=== PATIENT | male | born 1960 | race African-American/Black ===

== ENCOUNTER 2016-08-29 13:10 | Inpatient (IN) | payer OTHER ==
[2016-08-29 13:56] VITALS: BMI 19.8
--- NOTE | 2016-08-29 16:26 | HP ---
CIWA Score - CIWA Score Nausea/Vomitin-Mild Nausea/No Vomiting Muscle Tremors: 5 Anxiety: 4-Mod. Anxious/Guarded Agitation: 4-Moderately Restless Paroxysmal Sweats: 2 Orientation: 0-Oriented Tacttile Disturbances: 0-None Auditory Disturbances: 0-None Visual Disturbances: 0-None Headache: 0-None Present CIWA-Ar Total Score: 16 Admission ROS BHS - HPI Chief Complaint: withdrawal sx Allergies/Adverse Reactions: Allergies Allergy/AdvReac Type Severity Reaction Status Date / Time No Known Allergies Allergy Verified 08/29/16 16:34 History of Present Illness: 55 years old male with long history of alcohol xanax marijuana dependence has hypertension and bipolar II is admitted to detox Exam Limitations: No Limitations - Ebola screening Have you traveled outside of the country in the last 21 days: No Have you had contact with anyone from an Ebola affected area: No Have you been sick,other than usual withdrawal symptoms: No Do you have a fever: No - Review of Systems Constitutional: Chills, Loss of Appetite, Changes in sleep, Unintentional Wgt. Loss, Unexplained wgt Loss EENT: reports: Other (eye glasses) Respiratory: reports: No Symptoms reported Cardiac: reports: No Symptoms Reported GI: reports: Diarrhea, Nausea, Poor Appetite, Poor Fluid Intake, Abdominal cramping : reports: No Symptoms Reported Musculoskeletal: reports: Joint Pain (hips) Integumentary: reports: No Symptoms Reported Neuro: reports: Tremors Endocrine: reports: No Symptoms Reported Hematology: reports: Blood Clots (aspirin) Psychiatric: reports: Judgement Intact, Orientated x3, Anxious, Depressed Other Systems: Reviewed and Negative Patient History - Patient Medical History Hx Anemia: Yes (NO CURRENT MEDS) Hx Asthma: No Hx Chronic Obstructive Pulmonary Disease (COPD): No Hx Cancer: No Hx Cardiac Disorders: No Hx Congestive Heart Failure: No Hx Hypertension: Yes (ON MEDS.) Hx Hypercholesterolemia: No Hx Pacemaker: No HX Cerebrovascular Accident: No Hx Seizures: No Hx Dementia: No Hx Diabetes: No Hx Gastrointestinal Disorders: No Hx Liver Disease: No Hx Genitourinary Disorders: No Hx Sexually Transmitted Disorders: No Hx Renal Disease (ESRD): No Hx Thyroid Disease: No Hx Human Immunodeficiency Virus (HIV): No (NEGATIVE HX) Hx Hepatitis C: No Hx Depression: No Hx Suicide Attempt: No Hx Bipolar Disorder: Yes Hx Schizophrenia: No - Patient Surgical History Past Surgical History: Yes Hx Neurologic Surgery: No Hx Cataract Extraction: No Hx Cardiac Surgery: No Hx Lung Surgery: No Hx Breast Surgery: No Hx Breast Biopsy: No Hx Abdominal Surgery: No Hx Appendectomy: No Hx Cholecystectomy: No Hx Genitourinary Surgery: No Hx Orthopedic Surgery: No - PPD History Previous Implant?: Yes Documented Results: Negative w/proof Implanted On Prior [facility] Admission?: Yes Date: 07/27/15 Results: 0 MM PPD to be Administered?: Yes - Smoking Cessation Smoking history: Former smoker Have you smoked in the past 12 months: No Aproximately how many cigarettes per day: 0 If you are a former smoker, when did you quit?: in 2004 Cigars Per Day: 0 Hx Chewing Tobacco Use: No Initiated information on smoking cessation: No - Substance & Tx. History Hx Alcohol Use: Yes Hx Substance Use: Yes Substance Use Type: Alcohol, Marijuana, Tranquilizers Hx Substance Use Treatment: Yes - Substances Abused Alcohol-vodka/rum/beer Route: Oral Frequency: Daily Amount used: 2-3 pts./3-4 6 pks. Age of first use: 25 Date of Last Use: 08/29/16 Xanax Route: Oral Frequency: 3-6 times per week Amount used: 3 tabs. (2 mg.) Age of first use: 54 Date of Last Use: 08/27/16 Marijuana Route: Smoking Frequency: Daily Amount used: $15 Age of first use: 18 Date of Last Use: 08/29/16 Family Disease History - Family Disease History Family Disease History: Other: Father (alcohol dependence), Mother (alcohol dependence) Admission Physical Exam S - Vital Signs Vital Signs: Vital Signs - 24 hr 08/29/16 13:54 Temperature 98.8 F Pulse Rate 103 H Respiratory 18 Rate Blood Pressure 128/91 - Physical General Appearance: Yes: Appropriately Dressed, Moderate Distress, Thin, Tremorous, Irritable, Sweating, Anxious HEENTM: Yes: Hearing grossly Normal, Normal ENT Inspection, Normocephalic, Normal Voice Respiratory: Yes: Chest Non-Tender, Lungs Clear, Normal Breath Sounds, No Respiratory Distress, No Accessory Muscle Use Neck: Yes: Supple, Trachea in good position Breast: Yes: Breasts Symetrical Cardiology: Yes: Regular Rhythm, S1, S2, Tachycardia Abdominal: Yes: Non Tender, Soft Genitourinary: Yes: Within Normal Limits Back: Yes: Normal Inspection Musculoskeletal: Yes: full range of Motion, Gait Steady, Muscle Pain (hips) Extremities: Yes: Normal Range of Motion, Non-Tender, Tremors Neurological: Yes: Fully Oriented, Alert, Motor Strength 5/5, Normal Response, Depressed Affect Integumentary: Yes: Warm, Clammy Lymphatic: Yes: Within Normal Limits - Diagnostic (1) Alcohol dependence with uncomplicated withdrawal Current Visit: Yes Status: Acute (2) Essential (primary) hypertension Current Visit: Yes Status: Acute Comment: lisinopril 30 mg daily (3) Bipolar II disorder Current Visit: Yes Status: Suspected (4) Weight loss Current Visit: Yes Status: Acute Cleared for Admission [facility] - Detox or Rehab [facility] Level of Care: Medically Managed Detox Regimen/Protocol: Librium [facility] Breath Alcohol Content Breath Alcohol Content: 0 Vital Signs - Vital Signs Vital Signs Refused: No Temperature: 98.8 F Temperature Source: Oral Pulse Rate: 103 Respiratory Rate: 18 Blood Pressure: 128/91 BP Location: Left Arm Blood Pressure Position: Sitting - Height Height: 6 ft 1 in - Weight Weight: 150 lb Weight Measurement Method: Standing Scale Body Mass Index (BMI): 19.8 - Bowel Function Bowel Movement: Yes Urine Drug Screen - Control Is Test Valid: Yes - Results Drug Screen Negative: No Urine Drug Screen Results: THC-Marijuana, BZO-Benzodiazepines
[2016-08-29] MEDS ORDERED: P-EPHED 60MG/TRIPROLIDI 2.5MG TABLET PO PRN (16:45)
[2016-08-29] MEDS ORDERED: MAGNESIUM HYDROX 2400MG/30ML ORAL SUSPENSION 30 ML CUP PO PRN (16:45)
[2016-08-29] MEDS ORDERED: diphenhydrAMINE HCL 50 MG CAPSULE PO PRN (16:45)
[2016-08-29] MEDS ORDERED: hydrOXYzine PAMOATE 50 MG CAPSULE (FP) PO PRN (16:45)
[2016-08-29] MEDS ORDERED: ACETAMINOPHEN 325 MG TABLET (FP) PO PRN (16:45)
[2016-08-29] MEDS ORDERED: guaiFENesin/D-METHORPHAN HB 10 ML UNIT-DOSE CUPS PO PRN (16:45)
[2016-08-29] MEDS ORDERED: MENTHOL/PHENOL 1 EACH UD MM PRN (16:45)
[2016-08-29] MEDS ORDERED: MAG HYDROX/AL HYDROX/SIMETH 30 ML UNIT-DOSE CUP PO PRN (16:45)
[2016-08-29] MEDS ORDERED: MAGNESIUM CITRATE 300 ML BOTTLE PO PRN (16:45)
[2016-08-29] MEDS ORDERED: LOPERAMIDE HCL 2 MG CAPSULE PO PRN (16:45)
[2016-08-29] MEDS ORDERED: chlordiazePOXIDE HCL 25 MG CAPSULE PO PRN (16:45)
[2016-08-29] MEDS ORDERED: chlordiazePOXIDE HCL 25 MG CAPSULE PO ONE (17:45)
[2016-08-29] MEDS: chlordiazePOXIDE HCL 25 MG CAPSULE PO SCH (22:21)
[2016-08-29] MEDS: THIAMINE HCL 100 MG TABLET (FP) PO SCH (22:22)
[2016-08-29 22:34] LABS: URINE APPEARANCE SLCLOUDY; URINE BILIRUBIN NEGATIVE (NEGATIVE); URINE BLOOD NEGATIVE (NEGATIVE); URINE COLOR DKYELLOW; URINE GLUCOSE (UA) NEGATIVE (NEGATIVE); URINE KETONE TRACE (NEGATIVE); URINE LEUK ESTERASE NEGATIVE (NEGATIVE); URINE NITRITE NEGATIVE (NEGATIVE); URINE UROBILINOGEN NEGATIVE E.U./dl (0.2-1.0)
[2016-08-29 22:39] LABS: URINE PROTEIN 1+ (NEGATIVE)
[2016-08-29 22:48] LABS: URINE MUCUS FEW; URINE RBC <1 /hpf (0-3); URINE WBC 1 /hpf (3-5)
[2016-08-30] MEDS: chlordiazePOXIDE HCL 25 MG CAPSULE PO SCH ×4 (05:03→22:11)
[2016-08-30 09:51] LABS: MCH 28.2 pg (25.7-33.7); MCHC 32.3 g/dl (32.0-35.9); MEAN CELL VOLUME 87.4 fl (80-96); MEAN PLT VOLUME 9.5 fl (7.5-11.1); PLATELET COUNT 172 K/MM3 (134-434); RDW 16.1 % (11.9-15.9); WHITE BLOOD COUNT 5.8 K/mm3 (4.0-10.0)
[2016-08-30] MEDS ORDERED: LISINOPRIL 10 MG TABLET (FP) PO SCH (10:00)
[2016-08-30] MEDS: ASPIRIN 81 MG CHEWABLE TABLETS PO SCH (10:06)
[2016-08-30] MEDS: PRENATAL VITAMINS W/ FOLIC ACID TABLET (FP) PO SCH (10:06)
[2016-08-30] MEDS: LISINOPRIL 20 MG TABLET (FP) PO SCH (10:06)
--- NOTE | 2016-08-30 10:45 | PN ---
[facility] CIWA - CIWA Score Nausea/Vomitin-No Nausea/No Vomiting Muscle Tremors: 4-Moderate,w/Arms Extend Anxiety: 4-Mod. Anxious/Guarded Agitation: 4-Moderately Restless Paroxysmal Sweats: 1-Minimal Palms Moist Orientation: 0-Oriented Tacttile Disturbances: 3-Moderate Itch/Numb/Burn Auditory Disturbances: 0-None Visual Disturbances: 0-None Headache: 0-None Present CIWA-Ar Total Score: 16 BHS Progress Note (SOAP) Subjective: ANXIETY,SWEATS,INTERMITTENT SLEEP Objective: 08/30/16 10:44 Vital Signs Temperature 96.7 F L 08/30/16 09:56 Pulse Rate 73 08/30/16 09:56 Respiratory Rate 20 08/30/16 09:56 Blood Pressure 152/93 08/30/16 09:56 O2 Sat by Pulse Oximetry (%) Laboratory Last Values WBC 5.8 K/mm3 (4.0-10.0) D 08/30/16 06:00 RBC 5.02 M/mm3 (4.00-5.60) 08/30/16 06:00 Hgb 14.2 GM/dL (11.7-16.9) D 08/30/16 06:00 Hct 43.9 % (35.4-49) D 08/30/16 06:00 MCV 87.4 fl (80-96) 08/30/16 06:00 MCHC 32.3 g/dl (32.0-35.9) 08/30/16 06:00 RDW 16.1 % (11.9-15.9) H 08/30/16 06:00 Plt Count 172 K/MM3 (134-434) 08/30/16 06:00 MPV 9.5 fl (7.5-11.1) D 08/30/16 06:00 Urine Color Dkyellow 08/29/16 22:00 Urine Appearance Slcloudy 08/29/16 22:00 Urine pH 5.0 (5.0-8.0) D 08/29/16 22:00 Ur Specific [place] 1.020 (1.001-1.035) 08/29/16 22:00 Urine Protein 1+ (NEGATIVE) H 08/29/16 22:00 Urine Glucose (UA) Negative (NEGATIVE) 08/29/16 22:00 Urine Ketones Trace (NEGATIVE) H 08/29/16 22:00 Urine Blood Negative (NEGATIVE) 08/29/16 22:00 Urine Nitrite Negative (NEGATIVE) 08/29/16 22:00 Urine Bilirubin Negative (NEGATIVE) 08/29/16 22:00 Urine Urobilinogen Negative E.U./dl (0.2-1.0) 08/29/16 22:00 Ur Leukocyte Esterase Negative (NEGATIVE) 08/29/16 22:00 Urine RBC <1 /hpf (0-3) 08/29/16 22:00 Urine WBC 1 /hpf (3-5) 08/29/16 22:00 Urine Mucus Few 08/29/16 22:00 Assessment: 08/30/16 10:44 WITHDRAWAL SX Plan: CONTINUE DETOX INCREASE PO FLUIDS.
[2016-08-30 11:10] LABS: ALBUMIN 4.6 g/dl (3.4-5.0); ALK PHOS 81 U/L (45-117); ANION GAP 12 (8-16); BILIRUBIN,TOTAL 0.9 mg/dL (0.2-1.0); CALCIUM 9.5 mg/dL (8.5-10.1); CO2 27 mmol/L (21-32); GLUCOSE,RANDOM 129 mg/dL (74-106); SGOT/AST 61 U/L (15-37); SGPT/ALT 90 U/L (12-78); TOT PROT 8.4 g/dl (6.4-8.2)
--- NOTE | 2016-08-30 11:55 | EKG ---
Test Reason : Blood Pressure : / mmHG Vent. Rate : 085 BPM Atrial Rate : 085 BPM P-R Int : 162 ms QRS Dur : 094 ms QT Int : 370 ms P-R-T Axes : 077 063 073 degrees QTc Int : 440 ms NORMAL SINUS RHYTHM INCOMPLETE RBBB NO PREVIOUS ECGS AVAILABLE Confirmed by CLARISSA LEE MD ([id number]) on 08/30/2016 11:55:16 AM Referred By: Confirmed By:CLARISSA LEE MD
--- NOTE | 2016-08-30 14:42 | CONSULT ---
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 Smoking history: Former smoker. Have you smoked in the past 12 months: No. Aproximately how many cigarettes per day: 0. If you are a former smoker, when did you quit?: in 2004. Cigars Per Day: 0. Hx Chewing Tobacco Use: No. Initiated information on smoking cessation: No. - Substance & Tx. History. Hx Alcohol Use: Yes. Hx Substance Use: Yes. Substance Use Type: Alcohol, Marijuana, Tranquilizers. Hx Substance Use Treatment: Yes. - Substances Abused. Alcohol-vodka/rum/beer. Route: Oral. Frequency: Daily. Amount used: 2-3 pts./3-4 6 pks. Age of first use: 25. Date of Last Use: 08/29/16. Xanax. Route: Oral. Frequency: 3-6 times per week. Amount used: 3 tabs. (2 mg.). Age of first use: 54. Date of Last Use: 08/27/16. Marijuana. Route: Smoking. Frequency: Daily. Amount used: $15. Age of first use: 18. Date of Last Use: 08/29/16 Medical History: Significant for HTN and history of treatment for anemia Psychiatric History: Denies history of previous psychiatric treatment. However, reports feeling anxious and experiencing difficulty to sleep Mental Status Exam - Mental Status Exam Alert and Oriented to: Time, Place, Person Cognitive Function: Fair Patient Appearance: Well Groomed Mood: Anxious Affect: Appropriate Patient Behavior: Cooperative Speech Pattern: Clear Voice Loudness: Normal Thought Process: Intact Thought Disorder: Not Present Hallucinations: Denies Suicidal Ideation: Denies Homicidal Ideation: Denies Insight/Judgement: Poor Sleep: Poorly Appetite: Good Muscle strength/Tone: Normal Gait/Station: Normal Psychiatric Findings - Problem List ([place] 1, 2,3) (1) Alcohol-induced anxiety disorder Current Visit: No Status: Acute (2) Alcohol-induced sleep disorder Current Visit: No Status: Acute (3) Alcohol dependence with uncomplicated withdrawal Current Visit: Yes Status: Acute (4) Sedative dependence Current Visit: No Status: Acute (5) Cannabis dependence, uncomplicated Current Visit: No Status: Acute (6) Nicotine dependence Current Visit: No Status: Chronic Qualifiers: Nicotine product type: cigarettes Substance use status: uncomplicated Qualified Code(s): F17.210 - Nicotine dependence, cigarettes, uncomplicated (7) Essential (primary) hypertension Current Visit: Yes Status: Acute Comment: lisinopril 30 mg daily - Initial Treatment Plan Initial Treatment Plan: 1) Start Zolpidem 10 mg po HS prn for insomnia. Benefits vs Risks of medication discussed with patient and he agreed to try it. 2) Continue inpatient detoxification
[2016-08-30] MEDS: THIAMINE HCL 100 MG TABLET (FP) PO SCH (22:10)
[2016-08-30] MEDS: ZOLPIDEM TARTRATE 10 MG TABLET (PARK CARE ONLY) PO PRN (22:11)
[2016-08-31] MEDS: chlordiazePOXIDE HCL 25 MG CAPSULE PO SCH ×3 (05:15→18:18)
[2016-08-31] MEDS: ASPIRIN 81 MG CHEWABLE TABLETS PO SCH (10:05)
[2016-08-31] MEDS: PRENATAL VITAMINS W/ FOLIC ACID TABLET (FP) PO SCH (10:05)
[2016-08-31] MEDS: LISINOPRIL 20 MG TABLET (FP) PO SCH (10:05)
--- NOTE | 2016-08-31 13:19 | PN ---
S CIWA - CIWA Score Nausea/Vomitin Muscle Tremors: 4-Moderate,w/Arms Extend Anxiety: 2 Agitation: 1-Slight > Activity Paroxysmal Sweats: 3 Orientation: 0-Oriented Tacttile Disturbances: 3-Moderate Itch/Numb/Burn Auditory Disturbances: 1-Very Mild Visual Disturbances: 0-None Headache: 0-None Present CIWA-Ar Total Score: 16 BHS Progress Note (SOAP) Subjective: Sweating, Body Aches, Muscle spasms, Nausea, Tremors, Interrupted sleep. Objective: PT. A & O X 3. 08/31/16 13:18 Vital Signs Temperature 97.2 F L 08/31/16 13:14 Pulse Rate 82 08/31/16 13:14 Respiratory Rate 20 08/31/16 13:14 Blood Pressure 101/66 08/31/16 13:14 O2 Sat by Pulse Oximetry (%) Laboratory Last Values WBC 5.8 K/mm3 (4.0-10.0) D 08/30/16 06:00 RBC 5.02 M/mm3 (4.00-5.60) 08/30/16 06:00 Hgb 14.2 GM/dL (11.7-16.9) D 08/30/16 06:00 Hct 43.9 % (35.4-49) D 08/30/16 06:00 MCV 87.4 fl (80-96) 08/30/16 06:00 MCHC 32.3 g/dl (32.0-35.9) 08/30/16 06:00 RDW 16.1 % (11.9-15.9) H 08/30/16 06:00 Plt Count 172 K/MM3 (134-434) 08/30/16 06:00 MPV 9.5 fl (7.5-11.1) D 08/30/16 06:00 Sodium 141 mmol/L (136-145) 08/30/16 06:00 Potassium 4.1 mmol/L (3.5-5.1) 08/30/16 06:00 Chloride 102 mmol/L (98-107) 08/30/16 06:00 Carbon Dioxide 27 mmol/L (21-32) 08/30/16 06:00 Anion Gap 12 (8-16) 08/30/16 06:00 BUN 14 mg/dL (7-18) 08/30/16 06:00 Creatinine 1.0 mg/dL (0.7-1.3) 08/30/16 06:00 Creat Clearance w eGFR > 60 (>60) 08/30/16 06:00 Random Glucose 129 mg/dL (74-106) H 08/30/16 06:00 Calcium 9.5 mg/dL (8.5-10.1) 08/30/16 06:00 Total Bilirubin 0.9 mg/dL (0.2-1.0) D 08/30/16 06:00 AST 61 U/L (15-37) H D 08/30/16 06:00 ALT 90 U/L (12-78) H 08/30/16 06:00 Alkaline Phosphatase 81 U/L (45-117) D 08/30/16 06:00 Total Protein 8.4 g/dl (6.4-8.2) H D 08/30/16 06:00 Albumin 4.6 g/dl (3.4-5.0) 08/30/16 06:00 Urine Color Dkyellow 08/29/16 22:00 Urine Appearance Slcloudy 08/29/16 22:00 Urine pH 5.0 (5.0-8.0) D 08/29/16 22:00 Ur Specific [place] 1.020 (1.001-1.035) 08/29/16 22:00 Urine Protein 1+ (NEGATIVE) H 08/29/16 22:00 Urine Glucose (UA) Negative (NEGATIVE) 08/29/16 22:00 Urine Ketones Trace (NEGATIVE) H 08/29/16 22:00 Urine Blood Negative (NEGATIVE) 08/29/16 22:00 Urine Nitrite Negative (NEGATIVE) 08/29/16 22:00 Urine Bilirubin Negative (NEGATIVE) 08/29/16 22:00 Urine Urobilinogen Negative E.U./dl (0.2-1.0) 08/29/16 22:00 Ur Leukocyte Esterase Negative (NEGATIVE) 08/29/16 22:00 Urine RBC <1 /hpf (0-3) 08/29/16 22:00 Urine WBC 1 /hpf (3-5) 08/29/16 22:00 Urine Mucus Few 08/29/16 22:00 RPR Titer Nonreactive (NONREACTIVE) 08/30/16 06:00 LABS NOTED. Assessment: 08/31/16 13:19 WITHDRAWAL SYMPTOMS. Plan: CONTINUE DETOX. ADVISED PATIENT TO FOLLOW-UP WITH [facility]ANER / REHAB MEDICAL PROVIDER AFTER DISCHARGE FROM DETOX FOR GENERAL MEDICAL ASSESSMENT AND FOR ANY ABNORMAL ADMISSION LAB VALUES.
[2016-08-31] MEDS: ZOLPIDEM TARTRATE 10 MG TABLET (PARK CARE ONLY) PO PRN (22:09)
[2016-08-31] MEDS: chlordiazePOXIDE 5 MG CAPSULE PO SCH (22:09)
[2016-08-31] MEDS: THIAMINE HCL 100 MG TABLET (FP) PO SCH (22:10)
[2016-08-31] MEDS: CYCLOBENZAPRINE HCL 10 MG TABLET (FP) PO PRN (22:11)
[2016-09-01] MEDS: chlordiazePOXIDE 5 MG CAPSULE PO SCH ×3 (05:34→17:29)
[2016-09-01] MEDS: CYCLOBENZAPRINE HCL 10 MG TABLET (FP) PO PRN ×2 (05:35→17:29)
[2016-09-01] MEDS: ASPIRIN 81 MG CHEWABLE TABLETS PO SCH (10:17)
[2016-09-01] MEDS: PRENATAL VITAMINS W/ FOLIC ACID TABLET (FP) PO SCH (10:17)
[2016-09-01] MEDS: LISINOPRIL 20 MG TABLET (FP) PO SCH (12:23)
--- NOTE | 2016-09-01 13:34 | PN ---
BHS Progress Note (SOAP) Subjective: Irritability, tremor, chills, sweating, nausea Objective: 09/01/16 13:31 Last Vital Signs Temp Pulse Resp BP Pulse Ox 97 F L 64 20 114/68 09/01/16 09:41 09/01/16 09:41 09/01/16 09:41 09/01/16 09:41 Laboratory Tests 08/29/16 08/30/16 08/30/16 22:00 06:00 06:00 WBC 5.8 D RBC 5.02 Hgb 14.2 D Hct 43.9 D MCV 87.4 MCHC 32.3 RDW 16.1 H Plt Count 172 MPV 9.5 D Sodium 141 Potassium 4.1 Chloride 102 Carbon Dioxide 27 Anion Gap 12 BUN 14 Creatinine 1.0 Creat Clearance w eGFR > 60 Random Glucose 129 H Calcium 9.5 Total Bilirubin 0.9 D AST 61 H D ALT 90 H Alkaline Phosphatase 81 D Total Protein 8.4 H D Albumin 4.6 Urine Color Dkyellow Urine Appearance Slcloudy Urine pH 5.0 D Ur Specific [place] 1.020 Urine Protein 1+ H Urine Glucose (UA) Negative Urine Ketones Trace H Urine Blood Negative Urine Nitrite Negative Urine Bilirubin Negative Urine Urobilinogen Negative Ur Leukocyte Esterase Negative Urine RBC <1 Urine WBC 1 Urine Mucus Few RPR Titer 08/30/16 06:00 WBC RBC Hgb Hct MCV MCHC RDW Plt Count MPV Sodium Potassium Chloride Carbon Dioxide Anion Gap BUN Creatinine Creat Clearance w eGFR Random Glucose Calcium Total Bilirubin AST ALT Alkaline Phosphatase Total Protein Albumin Urine Color Urine Appearance Urine pH Ur Specific [place] Urine Protein Urine Glucose (UA) Urine Ketones Urine Blood Urine Nitrite Urine Bilirubin Urine Urobilinogen Ur Leukocyte Esterase Urine RBC Urine WBC Urine Mucus RPR Titer Nonreactive Labs noted: serum glucose 129, UA: 1+ glucose Assessment: Withdrawal symptoms Noted with hyperglycemia and proteinuria Plan: Continue detox Hyperglycemia: finger stick ac meal, consider starting oral antidiabetic if warranted, consider changing diet to diabetic if warranted Proteinuria: encouraged to drink lots of water, repeat UA
[2016-09-01] MEDS ORDERED: ONDANSETRON 4 MG TABLET PO ONE (14:01)
[2016-09-01] MEDS: INSULIN SLIDING SCALE (NOVOLOG) 1 VIAL SQ SCH (16:52)
[2016-09-01] MEDS ORDERED: ONDANSETRON 4 MG TABLET PO PRN (22:00)
[2016-09-01] MEDS: THIAMINE HCL 100 MG TABLET (FP) PO SCH (22:03)
[2016-09-01] MEDS: ZOLPIDEM TARTRATE 10 MG TABLET (PARK CARE ONLY) PO PRN (22:04)
[2016-09-01] MEDS: chlordiazePOXIDE HCL 10 MG CAPSULE PO SCH (22:04)
[2016-09-02] MEDS: chlordiazePOXIDE HCL 10 MG CAPSULE PO SCH ×2 (05:40→10:09)
[2016-09-02] MEDS: INSULIN SLIDING SCALE (NOVOLOG) 1 VIAL SQ SCH ×2 (07:48→11:49)
[2016-09-02 09:34] VITALS: BP 117/71; PULSE 71; TEMP 97
[2016-09-02] MEDS: PRENATAL VITAMINS W/ FOLIC ACID TABLET (FP) PO SCH (10:07)
[2016-09-02] MEDS: ASPIRIN 81 MG CHEWABLE TABLETS PO SCH (10:09)
[2016-09-02] MEDS: LISINOPRIL 20 MG TABLET (FP) PO SCH (10:10)
--- NOTE | 2016-09-02 10:18 | DS ---
[facility] Detox Discharge Summary Admission Date: 08/29/16 Discharge Date: 09/02/16 - History Present History: Alcohol Dependence, Cannabis Dependence Pertinent Past History: HTN - Physical Exam Results Vital Signs: Vital Signs Temperature 97 F L 09/02/16 09:33 Pulse Rate 71 09/02/16 09:33 Respiratory Rate 20 09/02/16 09:33 Blood Pressure 117/71 09/02/16 09:33 O2 Sat by Pulse Oximetry (%) Pertinent Admission Physical Exam Findings: Withdrawal sx. Laboratory Last Values WBC 5.8 K/mm3 (4.0-10.0) D 08/30/16 06:00 RBC 5.02 M/mm3 (4.00-5.60) 08/30/16 06:00 Hgb 14.2 GM/dL (11.7-16.9) D 08/30/16 06:00 Hct 43.9 % (35.4-49) D 08/30/16 06:00 MCV 87.4 fl (80-96) 08/30/16 06:00 MCHC 32.3 g/dl (32.0-35.9) 08/30/16 06:00 RDW 16.1 % (11.9-15.9) H 08/30/16 06:00 Plt Count 172 K/MM3 (134-434) 08/30/16 06:00 MPV 9.5 fl (7.5-11.1) D 08/30/16 06:00 Sodium 141 mmol/L (136-145) 08/30/16 06:00 Potassium 4.1 mmol/L (3.5-5.1) 08/30/16 06:00 Chloride 102 mmol/L (98-107) 08/30/16 06:00 Carbon Dioxide 27 mmol/L (21-32) 08/30/16 06:00 Anion Gap 12 (8-16) 08/30/16 06:00 BUN 14 mg/dL (7-18) 08/30/16 06:00 Creatinine 1.0 mg/dL (0.7-1.3) 08/30/16 06:00 Creat Clearance w eGFR > 60 (>60) 08/30/16 06:00 POC Glucometer 174 UNITS (()) 09/02/16 06:26 Random Glucose 129 mg/dL (74-106) H 08/30/16 06:00 Calcium 9.5 mg/dL (8.5-10.1) 08/30/16 06:00 Total Bilirubin 0.9 mg/dL (0.2-1.0) D 08/30/16 06:00 AST 61 U/L (15-37) H D 08/30/16 06:00 ALT 90 U/L (12-78) H 08/30/16 06:00 Alkaline Phosphatase 81 U/L (45-117) D 08/30/16 06:00 Total Protein 8.4 g/dl (6.4-8.2) H D 08/30/16 06:00 Albumin 4.6 g/dl (3.4-5.0) 08/30/16 06:00 Urine Color Dkyellow 08/29/16 22:00 Urine Appearance Slcloudy 08/29/16 22:00 Urine pH 5.0 (5.0-8.0) D 08/29/16 22:00 Ur Specific [place] 1.020 (1.001-1.035) 08/29/16 22:00 Urine Protein 1+ (NEGATIVE) H 08/29/16 22:00 Urine Glucose (UA) Negative (NEGATIVE) 08/29/16 22:00 Urine Ketones Trace (NEGATIVE) H 08/29/16 22:00 Urine Blood Negative (NEGATIVE) 08/29/16 22:00 Urine Nitrite Negative (NEGATIVE) 08/29/16 22:00 Urine Bilirubin Negative (NEGATIVE) 08/29/16 22:00 Urine Urobilinogen Negative E.U./dl (0.2-1.0) 08/29/16 22:00 Ur Leukocyte Esterase Negative (NEGATIVE) 08/29/16 22:00 Urine RBC <1 /hpf (0-3) 08/29/16 22:00 Urine WBC 1 /hpf (3-5) 08/29/16 22:00 Urine Mucus Few 08/29/16 22:00 RPR Titer Nonreactive (NONREACTIVE) 08/30/16 06:00 labs noted - Treatment Hospital Course: Detox Protocol Followed, Detoxed Safely, Responded well, Discharged Condition Good, Rehab Referral Accepted Patient has Accepted a Rehab Referral to: [facility] - Medication Discharge Medications: Ambulatory Orders Aspirin [Aspirin EC] 81 mg PO DAILY 07/04/14 Lisinopril [Prinivil -] 20 mg PO DAILY 08/29/16 - Diagnosis (1) Alcohol dependence with uncomplicated withdrawal Current Visit: Yes Status: Acute (2) Essential (primary) hypertension Current Visit: Yes Status: Acute (3) Cannabis dependence, uncomplicated Current Visit: Yes Status: Acute (4) Nicotine dependence Current Visit: Yes Status: Chronic Qualifiers: Nicotine product type: cigarettes Substance use status: uncomplicated Qualified Code(s): F17.210 - Nicotine dependence, cigarettes, uncomplicated (5) Alcohol-induced anxiety disorder Current Visit: Yes Status: Acute (6) Alcohol-induced sleep disorder Current Visit: Yes Status: Acute - AMA Did Patient Leave Against Medical Advice: No
[2016-09-02 14:19] LABS: URINE APPEARANCE CLEAR; URINE BILIRUBIN NEGATIVE (NEGATIVE); URINE BLOOD NEGATIVE (NEGATIVE); URINE COLOR YELLOW; URINE GLUCOSE (UA) NEGATIVE (NEGATIVE); URINE KETONE NEGATIVE (NEGATIVE); URINE LEUK ESTERASE NEGATIVE (NEGATIVE); URINE NITRITE NEGATIVE (NEGATIVE); URINE PROTEIN NEGATIVE (NEGATIVE); URINE UROBILINOGEN NEGATIVE E.U./dl (0.2-1.0)
== END 2016-09-02 12:31 | disposition other institution (70) | DRG 775 ==
LOC: YASAS 13:10 → Y3N 17:17
PROVIDERS: ADMIT Internal Medicine; ATTEND Internal Medicine
PROC: HZ2ZZZZ Detoxification Services for Substance Abuse Treatment (ICD-10-PCS; principal; 2016-08-29)
DX: F10.230 Alcohol dependence with withdrawal, uncomplicated (principal); F10.280 Alcohol dependence with alcohol-induced anxiety disorder; F10.282 Alcohol dependence with alcohol-induced sleep disorder; F13.20 Sedative, hypnotic or anxiolytic dependence, uncomplicated; F12.20 Cannabis dependence, uncomplicated; F31.81 Bipolar II disorder; I10 Essential (primary) hypertension; R73.9 Hyperglycemia, unspecified; R80.9 Proteinuria, unspecified; R00.0 Tachycardia, unspecified; Z86.2 Personal history of diseases of the blood and blood-forming organs and certain disorders involving the immune mechanism; Z87.891 Personal history of nicotine dependence; Z87.898 Personal history of other specified conditions
CPT/HCPCS: 36415; 80053; 81003; 81015; 85027; 86593; 93005; 93010

== ENCOUNTER 2016-09-02 13:23 | Inpatient (IN) | payer OTHER ==
[2016-09-02] MEDS ORDERED: MAG HYDROX/AL HYDROX/SIMETH 30 ML UNIT-DOSE CUP PO PRN (13:46)
[2016-09-02] MEDS ORDERED: IBUPROFEN 400 MG TABLET (FP) PO PRN (13:46)
[2016-09-02] MEDS ORDERED: MAGNESIUM HYDROX 2400MG/30ML ORAL SUSPENSION 30 ML CUP PO PRN (13:46)
[2016-09-02] MEDS ORDERED: ACETAMINOPHEN 325 MG TABLET (FP) PO PRN (13:46)
[2016-09-02] MEDS ORDERED: LOPERAMIDE HCL 2 MG CAPSULE PO PRN (13:46)
[2016-09-02] MEDS ORDERED: guaiFENesin/D-METHORPHAN HB 10 ML UNIT-DOSE CUPS PO PRN (13:46)
[2016-09-02] MEDS ORDERED: MENTHOL/PHENOL 1 EACH UD MM PRN (13:46)
[2016-09-02] MEDS ORDERED: P-EPHED 60MG/TRIPROLIDI 2.5MG TABLET PO PRN (13:46)
[2016-09-02] MEDS ORDERED: MAGNESIUM CITRATE 300 ML BOTTLE PO PRN (13:46)
[2016-09-02] MEDS ORDERED: CYCLOBENZAPRINE HCL 10 MG TABLET (FP) PO PRN (13:48)
[2016-09-02] MEDS: THIAMINE HCL 100 MG TABLET (FP) PO SCH (21:17)
[2016-09-02] MEDS: diphenhydrAMINE HCL 50 MG CAPSULE PO PRN (21:18)
[2016-09-03] MEDS: LISINOPRIL 10 MG TABLET (FP) PO SCH (09:41)
[2016-09-03] MEDS: PRENATAL VITAMINS W/ FOLIC ACID TABLET (FP) PO SCH (09:41)
[2016-09-03] MEDS: ASPIRIN COATED 81 MG TABLET.EC PO SCH (09:41)
[2016-09-03] MEDS ORDERED: PATIENT'S OWN MEDICATION (NON-FORMULARY) (Lisinopril [Prinivil -] 20 MG) PO SCH (10:00)
[2016-09-03 10:16] LABS: CALCIUM 8.9 mg/dL (8.5-10.1)
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
[2016-09-03] MEDS: SUVOREXANT 10 MG TABLET PO PRN (21:28)
[2016-09-03] MEDS: THIAMINE HCL 100 MG TABLET (FP) PO SCH (21:28)
[2016-09-04] MEDS: LISINOPRIL 10 MG TABLET (FP) PO SCH (09:50)
[2016-09-04] MEDS: PRENATAL VITAMINS W/ FOLIC ACID TABLET (FP) PO SCH (09:50)
[2016-09-04] MEDS: ASPIRIN COATED 81 MG TABLET.EC PO SCH (09:50)
[2016-09-04] MEDS: THIAMINE HCL 100 MG TABLET (FP) PO SCH (21:18)
[2016-09-04] MEDS: SUVOREXANT 10 MG TABLET PO PRN (21:19)
[2016-09-05] MEDS: PRENATAL VITAMINS W/ FOLIC ACID TABLET (FP) PO SCH (09:57)
[2016-09-05] MEDS: ASPIRIN COATED 81 MG TABLET.EC PO SCH (09:57)
[2016-09-05] MEDS: LISINOPRIL 10 MG TABLET (FP) PO SCH (09:57)
[2016-09-05] MEDS: THIAMINE HCL 100 MG TABLET (FP) PO SCH (21:25)
[2016-09-05] MEDS: SUVOREXANT 10 MG TABLET PO PRN (21:25)
[2016-09-06] MEDS: LISINOPRIL 10 MG TABLET (FP) PO SCH (09:40)
[2016-09-06] MEDS: PRENATAL VITAMINS W/ FOLIC ACID TABLET (FP) PO SCH (09:40)
[2016-09-06] MEDS: ASPIRIN COATED 81 MG TABLET.EC PO SCH (09:40)
[2016-09-06] MEDS: THIAMINE HCL 100 MG TABLET (FP) PO SCH (21:27)
[2016-09-06] MEDS: SUVOREXANT 10 MG TABLET PO PRN (21:28)
[2016-09-07] MEDS: PRENATAL VITAMINS W/ FOLIC ACID TABLET (FP) PO SCH (09:23)
[2016-09-07] MEDS: LISINOPRIL 10 MG TABLET (FP) PO SCH (09:23)
[2016-09-07] MEDS: ASPIRIN COATED 81 MG TABLET.EC PO SCH (09:23)
[2016-09-07] MEDS: THIAMINE HCL 100 MG TABLET (FP) PO SCH (21:42)
[2016-09-07] MEDS: diphenhydrAMINE HCL 50 MG CAPSULE PO PRN (21:42)
[2016-09-08] MEDS: LISINOPRIL 10 MG TABLET (FP) PO SCH (09:40)
[2016-09-08] MEDS: ASPIRIN COATED 81 MG TABLET.EC PO SCH (09:40)
[2016-09-08] MEDS: PRENATAL VITAMINS W/ FOLIC ACID TABLET (FP) PO SCH (09:40)
[2016-09-08] MEDS: THIAMINE HCL 100 MG TABLET (FP) PO SCH (21:39)
[2016-09-08] MEDS: diphenhydrAMINE HCL 50 MG CAPSULE PO PRN (21:39)
[2016-09-09 06:42] VITALS: BP 136/87; PULSE 69; TEMP 97.4
[2016-09-09] MEDS: LISINOPRIL 10 MG TABLET (FP) PO SCH (09:54)
[2016-09-09] MEDS: ASPIRIN COATED 81 MG TABLET.EC PO SCH (09:54)
[2016-09-09] MEDS: PRENATAL VITAMINS W/ FOLIC ACID TABLET (FP) PO SCH (09:54)
--- NOTE | 2016-09-09 10:43 | PN ---
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 ROS: HTN medically managed Current Medications: Active Medications Generic Name Dose Route Start Last Admin Trade Name Freq PRN Reason Stop Dose Admin Acetaminophen 650 mg 09/02/16 13:46 Tylenol - PO Q4H PRN FEVER OR PAIN Al Hydroxide/Mg Hydroxide 30 ml 09/02/16 13:46 09/03/16 13:59 Mylanta Oral Suspension - PO 30 ml Q6H PRN Administration DYSPEPSIA Aspirin 81 mg 09/03/16 10:00 09/09/16 09:54 Ecotrin - PO 81 mg DAILY JANIE Administration Cyclobenzaprine HCl 10 mg 09/02/16 13:48 09/03/16 06:15 Flexeril - PO 10 mg TID PRN Administration MUSCLE SPASMS Diphenhydramine HCl 50 mg 09/02/16 13:46 09/08/16 21:39 Benadryl - PO 50 mg HSMR1 PRN Administration FOR ITCHING Eucalyptus/Menthol/Phenol/Sorbitol 1 each 09/02/16 13:46 Cepastat Lozenge - MM Q4H PRN SORE THROAT Guaifenesin 10 ml 09/02/16 13:46 Robitussin Dm - PO Q6H PRN COUGH Ibuprofen 400 mg 09/02/16 13:46 09/03/16 06:15 Motrin - PO 400 mg Q6H PRN Administration PAIN Lisinopril 10 mg 09/03/16 10:00 09/09/16 09:54 Prinivil PO 10 mg DAILY JANIE Administration Loperamide HCl 4 mg 09/02/16 13:46 Imodium - PO Q6H PRN DIARRHEA Magnesium Hydroxide 30 ml 09/02/16 13:46 09/05/16 09:59 Milk Of Magnesia - PO 30 ml DAILY PRN Administration CONSTIPATION Multivit/Folic Acid/Iron 1 tab 09/03/16 10:00 09/09/16 09:54 Vitamins (Sjr) - PO 1 tab DAILY JANIE Administration Pseudoephedrine/Triprolidine 1 combo 09/02/16 13:46 Actifed - PO TID PRN NASAL CONGESTION Thiamine HCl 100 mg 09/02/16 22:00 09/08/16 21:39 Vitamin B1 - PO 100 mg HS JANIE Administration Current Side Effect: No Lab tests ordered: No Lab tests reviewed: Yes Provider note:: Patient has completed today this treatment and met his short term goals, will contineu to adress his issues at the next level of care ( I can club NA meetings). He focused on insights he gained in this treatment and ways how to prevent relapses. Belsorma well tolerated, patient made aware that no scripts provided for this medications. Patient is stable for discharge today. Total face to face time:: 20 Mental Status Exam - Mental Status Exam Alert and Oriented to: Time, Place, Person Cognitive Function: Good Patient Appearance: Well Groomed Mood: Hopeful Affect: Appropriate, Mood Congruent Patient Behavior: Appropriate, Cooperative Speech Pattern: Clear, Appropriate Voice Loudness: Normal Thought Process: Intact, Goal Oriented Thought Disorder: Not Present Hallucinations: Denies Suicidal Ideation: None Homicidal Ideation: None Insight/Judgement: Good Sleep: Well Appetite: Good Muscle strength/Tone: Normal Gait/Station: Normal Psychiatric Treatment Plan - Problem List (1) Alcohol-induced sleep disorder Current Visit: No (2) Cannabis dependence, uncomplicated Current Visit: No (3) Sedative dependence Current Visit: No (4) Alcohol dependence Current Visit: Yes
== END 2016-09-09 12:40 | disposition home or self-care (01) | DRG 772 ==
LOC: YASAS 13:23 → Y5N 13:25
PROVIDERS: ADMIT Psychiatry & Neurology Psychiatry; ATTEND Psychiatry & Neurology Psychiatry
PROC: HZ42ZZZ Group Counseling for Substance Abuse Treatment, Cognitive-Behavioral (ICD-10-PCS; principal; 2016-09-09)
DX: F13.230 Sedative, hypnotic or anxiolytic dependence with withdrawal, uncomplicated (principal); F10.230 Alcohol dependence with withdrawal, uncomplicated; F12.20 Cannabis dependence, uncomplicated; F10.282 Alcohol dependence with alcohol-induced sleep disorder
CPT/HCPCS: 36415; 80048; 83036